=== PATIENT | male | born 1965 | race Caucasian/White ===

== ENCOUNTER 2021-04-19 07:57 | Emergency (ER) | payer OTHER ==
[~2021-04-19] VITALS: Ht 177.8 cm; Wt 63.5 kg
[~2021-04-19 07:57] MED LIST: KEFLEX500 MG PO; MULTIVITAMINS1 EAC7 PO
[2021-04-19] MEDS ORDERED: VENTOLIN HFA18 GM INH (10:15)
[2021-04-19] MEDS ORDERED: TESSALON PERLE100 MG PO (10:15)
[2021-04-19] MEDS ORDERED: ZITHROMAX250 MG PO (10:15)
== END 2021-04-19 10:40 | disposition home or self-care (01) ==
LOC: ED 07:57
DX: U07.1 COVID-19 (principal); J12.82 Pneumonia due to coronavirus disease 2019
CPT/HCPCS: 71045; 80053; 83735; 85025; 96374; 99285-25; J1885; J7030